=== PATIENT | male | born 1955 | race Two or more races ===

== ENCOUNTER 2024-08-26 00:54 | Emergency (ER) | payer MEDICARE, MEDICAID, SELFPAY ==
[2024-08-26 00:58] VITALS: BP 205/100; BP 211/104; PULSE 77; RESP 17; TEMP 36.7; O2SAT 97
[2024-08-26 00:59] VITALS: BMI 25.0
[2024-08-26 01:00] VITALS: BMI 25.0
[2024-08-26 01:27] VITALS: BP 182/91; PULSE 62; RESP 18; O2SAT 96
[2024-08-26 01:30] VITALS: BP 175/88
--- NOTE | 2024-08-26 01:34 | PD.EDMEDCL ---
ED Medical Clearance RME/HPI General Chief complaint: Medical Clearance Stated complaint: MEDICAL CLEARANCE Time Seen by Provider: 08/26/24 01:33 Arrival date/time: 08/26/24 00:54 RME / HPI RME / HPI Narrative: Dr. Farfan?s Main ED Evaluation: 69yo male with pmhx HTN BIB PPD presents to the ED for medical clearance. Patient states he hasn't taken his blood pressure medications in 6 months. He denies any headache, dizziness, nausea, vomiting or any other associated symptoms. Patient subsequently complains of having chronic lower back pain that goes down to his leg. Related Information Home Medications ?Medication ?Instructions ?Recorded ?Confirmed ibuprofen 600 mg tablet 600 mg PO Q6H 08/13/21 08/13/21 tamsulosin 0.4 mg capsule 0.4 mg PO QDAY 08/13/21 08/13/21 Allergies Allergy/AdvReac Type Severity Reaction Status Date / Time Penicillins Allergy Intermediate Rash Verified 08/13/21 16:30 Review of Systems Review of Systems Systems Reviewed: All systems reviewed, normal except as documented ED Exam Narrative Physical exam: GENERAL APPEARANCE: alert and oriented x 4, well-developed, well-nourished, no acute distress VITALS: All vitals were reviewed and the pulse ox is 97% on room air, which is normal according to my interpretation. HEENT: Normocephalic, atraumatic; pupils equal, round, reactive to light; EOMI; mucous membranes pink, moist; oropharynx clear NECK: Supple LUNGS: CTABL; no wheezes, no rales, no rhonchi HEART: Regular rate, regular rhythm; normal S1, S2; no murmurs ABDOMEN: non distended; normal BS; soft, no tenderness, no guarding, no rebound; no masses, no organomegaly, no hernia BACK: no CVA tenderness EXTREMITIES: atraumatic; no edema NEUROLOGIC: awake; alert and oriented x4; cranial nerves II-XII grossly intact; no focal sensory or motor deficits PSYCHIATRIC: appropriate mood and affect SKIN: warm, dry, normal color; no rashes Course Quality Measures none Orders Category Date Time Status Discharge Routine Discharge 08/26/24 01:50 Active Ketorolac Inj [Toradol Inj] Med 08/26/24 01:44 Discontinued 60 mg IM X1 ONE cloNIDine HCL [Catapres] Med 08/26/24 01:44 Discontinued 0.1 mg PO X1 ONE Vital Signs Vital signs: Vital Signs Temperature 98.1 F 08/26/24 00:58 Pulse Rate 77 08/26/24 00:58 Respiratory Rate 17 08/26/24 00:58 Blood Pressure 205/100 H 08/26/24 00:58 Pulse Oximetry (%) 97 08/26/24 00:58 Oxygen Delivery Method Room Air 08/26/24 00:58 Medical Clearance MDM Narrative MDM Narrative:: Scribe Attestation: 08/26/24 - Catherine Terry am scribing for and in the presence of Dr. Farfan. Patient's blood pressure is 181/102. Clonidine and Toradol ordered. Patient is asymptomatic at this time and is stable to be discharged to the nursing home. Patient data External records reviewed:: None Clinical information provided by:: patient Social determinants that could affect healthcare access:: none Patient has the following chronic illnesses:: HTN How is presenting disease/condition affected by chronic disease/condition?: caused by Evaluation data The following diagnostics were reviewed and interpreted by me:: other (specify) (none) Lab and/or radiology exams considered but not ordered:: none Interpretation Summary: none Medications / Prescriptions Medications or Prescriptions considered but not ordered:: none Medication administrations:: Medication Administration History Discontinued Medications Clonidine (Clonidine Hcl 0.1 Mg Tablet) 0.1 mg PO X1 ONE Stop: 08/26/24 01:45 Last Admin: 08/26/24 01:55 Dose: 0.1 mg Documented By: CVL Ketorolac Tromethamine (Ketorolac Inj 60 Mg/2 Ml Vial) 60 mg IM X1 ONE Stop: 08/26/24 01:45 Last Admin: 08/26/24 01:56 Dose: 60 mg Documented By: CVL see above Consultations Consultation(s) initiated? (list below): No Diagnosis Medical Clearance Differential Diagnosis: other (hypertensive urgency, hypertensive emergency, uncontrolled hypertensive) Most likely diagnosis given after review of the tests above:: see below Admission Indicated Admission indicated?: not indicated Admission Request Was there a request for admission?: No Disposition Plan Disposition Plan: Discharge Discharge Attestation Discharge Attestation: The patient and all family members were given an opportunity to ask questions and understood the discharge instructions. Discharge instructions specifically effects, indications for sooner follow up or return to the emergency department, and the expected course of current diagnosis. Patient condition: Stable Discharge Plan Plan Patient Disposition: Senior Living/Court/Law Disposition Comment: Patient is stable for discharge into police custody Patient condition on transfer: Stable Prescriptions/Referrals Prescriptions/Med Rec: No Action tamsulosin 0.4 mg capsule 0.4 mg PO QDAY ibuprofen 600 mg tablet 600 mg PO Q6H Referrals: [facility] [Outside] - In 1 week No Primary/Family,Physician [Primary Care Provider] - In 1 week Problem List Clinical Impression: Hypertension, Sciatica Patient/Caregiver Discharge Instructions Discharge Activity: activity as tolerated Education Materials: Controlling High Blood Pressure, Self Care Back Day, Understanding Lumbar Radiculopathy, ED High Blood Pressure ..., ED Sciatica Additional Instructions: Please return to the emergency department if you have any worsening or any further medical problems Otherwise you should follow-up in the family health care clinic within the next several days Print Language: [place]an
[2024-08-26 01:55] VITALS: BP 184/102; PULSE 81
[2024-08-26] MEDS: cloNIDine HCL 0.1 MG TABLET PO (01:55)
[2024-08-26] MEDS: KETOROLAC INJ 60 MG/2 ML VIAL IM (01:56)
[2024-08-26 02:47] VITALS: BP 175/99; RESP 18
== END 2024-08-26 02:48 ==
PROVIDERS: Emergency Provider Emergency Medicine
DX: Z02.89 Encounter for other administrative examinations (principal); I10 Essential (primary) hypertension; M54.40 Lumbago with sciatica, unspecified side
CPT/HCPCS: 96372; 99283; J1885; A9270